=== PATIENT | male | born 1950 | race Caucasian/White ===

== ENCOUNTER 2018-05-29 12:39 | Emergency (ER) | END 2018-05-29 14:23 | disposition home or self-care (01) ==

== ENCOUNTER 2018-09-07 10:36 | Emergency (ER) | payer MEDICARE, OTHER ==
[~2018-09-07] VITALS: Wt 84.0 kg
[~2018-09-07 10:36] MED LIST: IBUP800T48 PO
[2018-09-07 10:44] VITALS: BP 145/81; PULSE 81; RESP 20
[2018-09-07] MEDS ORDERED: KETOROLAC 30 MG INJ IM STA (11:14)
--- NOTE | 2018-09-07 20:07 | ERD ---
ER Documentation Chief Complaint Chief Complaint RIGHT GROIN INTERMITTENT SWELLING FOR THE PAST MONTH. NO DYSURIA HPI This 67-year-old male patient presents to the emergency room with complaint of pain in right lower quadrant starting 2 months ago. Patient has seen his primary care doctor who performed ultrasound of abdomen and found fatty liver and no appendicitis. Patient states 2 days ago he started to feel a bulge in his right groin area and is concerned he could have a hernia. Patient states he is having normal bowel movements without straining, no melena, no hematochezia, pain is sharp and stabbing and intermittent. No penile discharge, no hydrocele. States he had been able to push the bulge back into his abdomen until 2 days ago where now he cannot do that and that is causing him concern. Patient ambulates with steady gait. Patient does have extensive medical history including DE, hypertension, depression, treated hep C. Patient states he does not drink alcohol, smoke cigarettes, or do drugs. ROS All systems reviewed and are negative except as per history of present illness. Medications Home Meds Active Scripts Ibuprofen* (Motrin*) 800 Mg Tab, 800 MG PO Q6, #30 TAB Prov:MANUEL RASCON PA-C 05/29/18 Allergies Allergies: Coded Allergies: No Known Allergy (Verified , 09/07/18) PMhx/Soc Medical and Surgical Hx: pt denies Medical Hx Hx Cardiac Disorders: Yes (hypertension) Hx Alcohol Use: Yes (socially) Hx Substance Use: No Hx Tobacco Use: No (have not smoked for 12 years) Smoking Status: Former smoker FmHx Family History: No diabetes, No coronary disease, No other Physical Exam Vitals Vital Signs Date Temp Pulse Resp B/P (MAP) Pulse Ox O2 O2 Flow FiO2 Time Delivery Rate 09/07/18 98.2 81 20 145/81 98 10:44 (102) Physical Exam Const: No acute distress Head: Atraumatic Eyes: Normal Conjunctiva ENT: Normal External Ears, Nose and Mouth. Neck: Full range of motion. No meningismus. Resp: Clear to auscultation bilaterally Cardio: Regular rate and rhythm, no murmurs, bilateral femoral pulses +2 strong and regular Abd: Soft, non tender, non distended. Normal bowel sounds Groin: bulge observable to right suprapubic region, no redness, normothermic, no bruising or discolored skin. Testicles palpated bilaterally in scrotal sac, no swelling, hydrocele, enlarged vessels. Hernia exam: left neg, right- unable to advance into inguinal canal due to presence of large hernia. Skin: No petechiae or rashes Back: No midline or flank tenderness Ext: No cyanosis, or edema Neur: Awake and alert Psych: Normal Mood and Affect Results 24 hrs Current Medications Medications Dose Sig/Jaylon Start Time Status Last (Trade) Ordered Route PRN Stop Time Admin Dose Reason Admin Ketorolac 30 mg ONCE STAT 09/07/18 DC 09/07/18 Tromethamine IM 11:14 11:53 (Toradol) 09/07/18 11:47 Procedures/MDM This is a 67-year-old male patient who presents to the emergency room with pain in groin. ED COURSE: The patient was stable throughout ED course. DIAGNOSTIC IMAGING: Deferred at this time as hernia was reducible PROCEDURES: Hernia able to be reduced by Dr. Quiroz while patient was in supine position, hernia reduced easily without pain. Patient tolerated well. Hernia belt placed after procedure. MEDICATIONS GIVEN: Toradol Patient tolerated medication well with no adverse reactions. Patient reported improvement in pain. Suspicion for lymphadenopathy, hydrocele, cryptochidism, abscess, tumor, cyst, incarcerated hernia, malignant process. Patient was provided with instructions on care of hernia, signs and symptoms of worsening of condition and when to seek emergent medical treatment. Patient provided with referrals for general surgery. Departure Diagnosis: Primary Impression: Inguinal hernia Condition: Stable Patient Instructions: Hernia (Inguinal, Ventral, Umbilical) Referrals: MARCIN ORTIZ MD, ANDREW I MD Additional Instructions: Thank you very much for allowing us to participate in your care. Your health and safety is our top priority at [facility]. Call your primary care doctor TOMORROW for an appointment during the next 2-4 days and bring all the information and medications prescribed. Have prescriptions filled and follow precisely the directions on the label. If the symptoms get worse and your provider is unavailable, return to the Emergency Department immediately. Use ibuprofen or Tylenol for pain. Use hernia belt for comfort. Into the emergency room immediately if you develop fever, severe constipation, red hot swollen area over hernia, severe pain at hernia. Follow-up with your primary doctor for referral for surgeon. Surgical referral is also provided. JESUS LAGOS NP Sep 07, 2018 20:06
== END 2018-09-07 12:30 | disposition home or self-care (01) ==
LOC: FTE 10:36
DX: K40.91 Unilateral inguinal hernia, without obstruction or gangrene, recurrent (principal); I10 Essential (primary) hypertension; I25.2 Old myocardial infarction; Z87.891 Personal history of nicotine dependence
CPT/HCPCS: 96372; 99284; J1885

== ENCOUNTER → 2018-10-01 | Day surgery (SDC) | payer MEDICARE, OTHER ==
[2018-09-29 17:05] VITALS: Ht 180.3 cm; Wt 88.0 kg
[~2018-10-01] VITALS: Ht 180.3 cm; Wt 88.0 kg
[~2018-10-01] MED LIST changes: +CEFAZOLIN 2 GM/50 ML (PMX) 50 ML IVPB SCH; +SOD CHLORIDE 0.9% 1,000 ML IV SCH
== END | disposition home or self-care (01) ==
LOC: SDS 14:12
PROVIDERS: ATTEND Surgery
DX: K40.90 Unilateral inguinal hernia, without obstruction or gangrene, not specified as recurrent (principal); Z53.8 Procedure and treatment not carried out for other reasons

== ENCOUNTER 2018-10-08 08:43 | Emergency (ER) | payer MEDICARE, OTHER ==
[~2018-10-08] VITALS: Wt 80.0 kg
[~2018-10-08 08:43] MED LIST changes: -CEFAZOLIN 2 GM/50 ML (PMX) 50 ML IVPB SCH; -SOD CHLORIDE 0.9% 1,000 ML IV SCH
[2018-10-08 08:48] VITALS: BP 116/68; PULSE 69; RESP 18
--- NOTE | 2018-10-08 10:14 | ERD ---
ER Documentation Chief Complaint Chief Complaint AP, HERNIA REPAIR CANCELLED LAST SATURDAY HPI 67-year-old male presents the emergency room complaining of pain in his right inguinal hernia. Patient has had a right inguinal hernia for some time now. He was unable to get his surgery performed last week as it was canceled. He presents the emergency department complaining of ongoing pain in the right inguinal area. He reports no nausea or vomiting. He reports pain localized in the area. He reports no fevers or chills. ROS All systems reviewed and are negative except as per history of present illness. Medications Home Meds Active Scripts Ibuprofen* (Motrin*) 800 Mg Tab, 800 MG PO Q6, #30 TAB Prov:MANUEL RASCON PA-C 05/29/18 Allergies Allergies: Coded Allergies: No Known Allergy (Verified , 09/07/18) PMhx/Soc History of Surgery: Yes (PACEMAKER PLACEMENT ) Anesthesia Reaction: No Hx Neurological Disorder: No Hx Respiratory Disorders: No Hx Cardiac Disorders: Yes (HTH, HIGH CHOLESTEROL, ) Hx Psychiatric Problems: Yes (DEPRESSION, ANXIETY ) Hx Miscellaneous Medical Probl: Yes (HEP B GOT TREATMENT ALREADY ) Hx Alcohol Use: No Hx Substance Use: No Hx Tobacco Use: No Smoking Status: Former smoker Physical Exam Vitals Vital Signs Date Temp Pulse Resp B/P (MAP) Pulse Ox O2 O2 Flow FiO2 Time Delivery Rate 10/08/18 98.1 69 18 116/68 99 08:48 (84) Physical Exam General: Well-developed well-nourished in no distress Abdomen: Soft, nontender with normal bowel sounds. : Patient has a reducible inguinal hernia without evidence of entrapment or incarceration Procedures/MDM Patient was taken to a room, seen and examined Medical decision makin-year-old presents the emergency room with a reducible inguinal hernia. Patient is referred back to his primary care doctor and surgeon for scheduling of operative repair. At this time he has no evidence of entrapment or obstruction. Departure Diagnosis: Primary Impression: Inguinal hernia Condition: Stable Patient Instructions: Hernia (Inguinal, Ventral, Umbilical) Additional Instructions: Speak to your surgeon and arrange your surgery. JODIE LÓPEZ Oct 08, 2018 10:14
== END 2018-10-08 10:24 | disposition home or self-care (01) ==
LOC: E/R 08:43
DX: K40.90 Unilateral inguinal hernia, without obstruction or gangrene, not specified as recurrent (principal); I10 Essential (primary) hypertension; Z87.891 Personal history of nicotine dependence; Z95.0 Presence of cardiac pacemaker
CPT/HCPCS: 99283

== ENCOUNTER 2018-10-22 10:23 | Day surgery (SDC) | payer MEDICARE, OTHER ==
--- NOTE | 2018-10-21 14:54 | PREOPHP ---
DATE OF SURGERY: 10/22/2018 Scheduled for outpatient surgery 10/22/2018. HISTORY OF PRESENT ILLNESS: The patient is a 67-year-old male with a symptomatic right inguinal hernia, scheduled to undergo open repair of right inguinal hernia with mesh. The patient has had 2 months of right groin pain with neuritic symptoms in the right groin. He has required Tylenol with codeine No. 3 to relieve his pain while he is waiting to have surgical repair. He does heavy lifting. He denies any nausea or vomiting. PAST MEDICAL HISTORY: 1. Amlodipine 10 mg for hypertension. 2. Wellbutrin 150 mg daily. 3. Aspirin 81 mg daily. 4. Flomax. 5. Lipitor. ALLERGIES: None. PAST SURGICAL HISTORY: Pacemaker 2009. REVIEW OF SYSTEMS: myocardial infarction x2. History of hepatitis C. 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 PHYSICAL EXAMINATION: GENERAL: The patient is 5 feet 11 inches, 195 pounds. VITAL SIGNS: within normal limits. HEENT: Within normal limits. LUNGS: Clear. HEART: Regular rhythm. ABDOMEN: Soft. There is a large reducible right inguinal hernia with some tenderness to palpation. The left inguinal canal is intact. Testes and scrotum are negative. Rectal negative per primary care physician. EXTREMITIES: Without edema. NEUROLOGIC: Physiologic. ASSESSMENT: Right inguinal hernia. PLAN: I have had a full discussion with the patient regarding the nature of his condition and the nature of the surgery, indications, alternatives, options and risks including bleeding, infection, recurrence despite use of mesh, neuritis or neuralgia, testicular or scrotal swelling or other abnormality, etc. All questions have been answered. He understands and agrees to proceed with open repair of right inguinal hernia with mesh under general anesthesia. He has received full medical clearance. Dictated By: TAE GEORGE/ZULY Conf#: [id number] DID#: [id number] CONCEPCIÓN
[~2018-10-22] VITALS: Ht 180.3 cm; Wt 87.6 kg
[2018-10-22] VITALS (13 sets, daily range): BP systolic 114–140; BP diastolic 61–77; PULSE 55–61; RESP 10–24; Ht 180.3 cm; Wt 87.6 kg
[~2018-10-22 10:23] MED LIST changes: +CEFAZOLIN 2 GM/50 ML (PMX) 50 ML IVPB SCH; +SEVOFLURANE 15 MIN ONE; +SOD CHLORIDE 0.9% 1,000 ML IV ONE
--- NOTE | 2018-10-22 10:54 | HPN ---
Date/Time of Note Date/Time of Note DATE: 10/22/18 TIME: 10:54 Interval H&P Admission Note Pt. seen H&P reviewed: No system changes TAE OSUNA October 22, 2018 10:54
[2018-10-22] MEDS ORDERED: AMLO-147 PO (10:59)
[2018-10-22] MEDS ORDERED: BUPR-75 PO (11:00)
[2018-10-22] MEDS ORDERED: TAMS-14 PO (11:00)
[2018-10-22] MEDS ORDERED: ATOR10TA65 PO (11:01)
[2018-10-22] MEDS ORDERED: ASPI81TA52 PO (11:01)
[2018-10-22] MEDS ORDERED: LIDOCAINE 1% (MPF) 30 ML INJ ONE (12:09)
[2018-10-22] MEDS ORDERED: POLYMYXIN/BACITRACIN 1L IRRIG ONE (12:09)
[2018-10-22] MEDS ORDERED: BUPIVACAINE 0.25% (MPF) 30 ML INJ ONE (12:09)
[2018-10-22] MEDS ORDERED: PROPOFOL 20 ML ONE (12:27)
[2018-10-22] MEDS ORDERED: ROCURONIUM 50 MG INJ ONE ×2 (12:27→13:33)
[2018-10-22] MEDS ORDERED: SUCCINYLCHOLINE CHLORIDE 100 MG/5 ML SYG IV ONE (12:27)
[2018-10-22] MEDS ORDERED: MIDAZOLAM 1 MG/ML 2 ML INJ ONE (12:27)
[2018-10-22] MEDS ORDERED: FENTAnyl 50 MCG/ML VIAL ONE ×2 (12:27→13:33)
[2018-10-22] MEDS ORDERED: LIDOCAINE 100 MG SYRINGE ONE (12:27)
[2018-10-22] MEDS ORDERED: CEFAZOLIN 1 GM INJ ONE (12:49)
[2018-10-22] MEDS ORDERED: SUGAMMADEX SODIUM 200 MG/2 ML VIAL IV ONE (12:50)
[2018-10-22] MEDS ORDERED: ONDANSETRON 4 MG INJ ONE (12:50)
[2018-10-22] MEDS ORDERED: DEXAMETHASONE 4 MG/ML 5 ML INJ ONE (12:50)
[2018-10-22] MEDS ORDERED: BUPIVACAINE 0.5% (SDV) 30 ML INJ ONE (13:00)
--- NOTE | 2018-10-22 13:17 | PREAC ---
Date/Time of Note Date/Time of Note DATE: 10/22/18 TIME: 13:14 Anesthesia Eval and Record Evaluation Time Pre-Procedure Interview DATE: 10/22/18 TIME: 12:20 Age 67 Sex male NPO: 8 hrs Preoperative diagnosis Right Inguinal Hernia Planned procedure Right Inguinal Hernia Repair with Mesh Past Medical History Past Medical History: Includes (Denies cp on exertion, prior to hernia, was able to ambulate withouth restrictions. ) Cardio: HTN, CAD, Arrythmia, PPM/AICD Hepatic: Hepatitis Infection(s): Hep C Surgery & Anesthesia Issues No known issue Meds Anticoagulation: No Beta Oniel within 24 hr: No Reason Beta Oniel not given: Pt. not on B-Oniel Reported Medications Atorvastatin Calcium (Atorvastatin Calcium) 10 Mg Tablet, 10 MG PO QHS, #30 TAB 10/22/18 Aspirin (Low Dose Aspirin) 81 Mg Tablet.dr, 81 MG PO DAILY, #30 TAB 10/22/18 Tamsulosin Hcl* (Flomax*) 0.4 Mg Cap.er.24h, 0.4 MG PO HS, CAP 10/22/18 Bupropion Hcl* (Wellbutrin XL*) 150 Mg Tab.sr.24h, 150 MG PO DAILY, TAB.SA 10/22/18 Amlodipine Besylate* (Amlodipine Besylate*) 10 Mg Tablet, 10 MG PO DAILY, #30 TAB 10/22/18 Discontinued Scripts Ibuprofen* (Motrin*) 800 Mg Tab, 800 MG PO Q6, #30 TAB Prov:MANUEL RASCON PA-C 05/29/18 Current Medications Cefazolin Sodium/ Dextrose 50 ml @ 100 mls/hr PRE-OP IVPB ; Start 10/22/18 at 06:00; Stop 10/22/18 at 15:00 Sodium Chloride 1,000 ml @ 75 mls/hr [id number] ONCE IV Last administered on 10/22/18at 11:20; Admin Dose 75 MLS/HR; Start 10/22/18 at 06:00; Stop 10/22/18 at 19:19 Meds reviewed: Yes Allergies Coded Allergies: No Known Allergy (Verified , 10/22/18) Allergies Reviewed: Yes Labs/Studies Labs Reviewed: Reviewed by anesthesiologist test: N/A Pre-procedure Exam Last vitals Vital Signs Date Temp Pulse Resp B/P (MAP) Pulse Ox O2 O2 Flow FiO2 Time Delivery Rate 10/22/18 98.1 55 16 140/76 98 Room Air 11:30 (97) Airway: Adequate mouth opening Mallampati: Mallampati II Teeth: Abnormal (Multiple upper and lower missing and damaged teeth) Lung: Normal Heart: Normal ASA Physical Status ASA physical status: 3 Emergency: None Planned Anesthetic General/MAC: ETT Pre-operative Attestations Prior to commencing anesthesia and surgery, the patient was re-evaluated, there was verification of: *The patient's identity *The results of appropriate recent lab work and preoperative vital signs *The above evaluation not changing prior to induction *Anesthetic plan, risk benefits, alternative and complications discussed with patient/family; questions answered; patient/family understands, accepts and wishes to proceed. ASHLEY APONTE MD October 22, 2018 13:17
[2018-10-22] MEDS ORDERED: ONDANSETRON 4 MG INJ IV PRN (13:30)
[2018-10-22] MEDS ORDERED: DIPHENHYDRAMINE 50 MG INJ IV PRN (13:30)
[2018-10-22] MEDS ORDERED: HYDROmorphONE 1 MG/5 ML IV SYRINGE IV PRN ×2 (13:30)
[2018-10-22] MEDS ORDERED: MEPERIDINE 25 MG INJ IV PRN (13:30)
[2018-10-22] MEDS ORDERED: KETOROLAC 30 MG INJ ONE (13:54)
--- NOTE | 2018-10-22 14:12 | SIPON ---
Date/Time of Note Date/Time of Note DATE: 10/22/18 TIME: 14:11 Operative Report Preoperative Diagnosis right inguinal hernia Postoperative Diagnosis right indirect with secondary direct inguinal hernia Operation/Procedure Performed open repair of right inguinal hernia with prolene mesh Surgeon see signature line team assistant none Anesthesia: general Estimated blood loss: minimal Transfusion Required none Specimen none Grafts/Implants prolene mesh Complications none TAE OSUNA October 22, 2018 14:12
--- NOTE | 2018-10-22 14:39 | PAC ---
Date/Time of Note Date/Time of Note DATE: 10/22/18 TIME: 14:38 Post-Anesthesia Notes Post-Anesthesia Note Last documented vital signs Vital Signs Date Temp Pulse Resp B/P (MAP) Pulse Ox O2 O2 Flow FiO2 Time Delivery Rate 10/22/18 99.1 14:23 10/22/18 55 16 140/76 98 Room Air 11:30 (97) Activity: WNL Respiratory function: WNL Cardiovascular function: WNL Mental status: Baseline Pain reasonably controlled: Yes Hydration appropriate: Yes Nausea/Vomiting absent: Yes ASHLEY APONTE MD October 22, 2018 14:38
[2018-10-22] MEDS: HYDROmorphONE 1 MG/5 ML IV SYRINGE IV PRN ×2 (14:47→15:10)
[2018-10-22] MEDS ORDERED: HYDROCODONE/APAP (5/325) TAB PO ONE (16:30)
--- NOTE | 2018-10-22 16:41 | OPR ---
DATE OF OPERATION: 10/22/2018 SURGEON: Tae Camarena MD MAT PACKER: None. ANESTHESIOLOGIST: Dr. Wilhelm. ANESTHESIA: General endotracheal. PREOPERATIVE DIAGNOSIS: Right inguinal hernia. POSTOPERATIVE DIAGNOSIS: Right indirect with secondary direct inguinal hernia. OPERATION PERFORMED: Open repair of right inguinal hernia with Prolene mesh. DESCRIPTION OF PROCEDURE: The patient was taken to the operating room and under general anesthesia, with sequential compression device stockings in place, he was prepped and draped in the usual fashion. A transverse curvilinear right groin incision was made, achieving hemostasis with cautery and incising the external oblique aponeurosis through the external ring. The spermatic cord was quite bulky. The ilioinguinal nerve was preserved. The indirect hernia sac was identified anteromedial in the cord and was circumferentially dissected free of attachments to the cord well into the internal ring. The sac was then reduced. There was also failure of the floor of the inguinal canal and adhesions of the direct inguinal hernia sac were taken down with cautery for hemostasis. The repair was accomplished by taking a piece of Prolene mesh, cut and tapered appropriately, soaked in antibiotic solution, measuring approximately 5 x 9 cm. First the inferior edge of the mesh was sutured to the shelving edge of inguinal ligament starting at pubic tubercle and extending lateral to the internal ring with continuous 2-0 Prolene. Then the lateral aspect of the mesh was split longitudinally so the tails could encircle the cord. Following this, the medial-superior edge of the mesh was sutured to the transversus tendon again starting at the pubic tubercle and extending lateral to the internal ring with continuous 2-0 Prolene. One suture was taken lateral to the internal ring to tack the superior tail over the inferior tail to the inguinal ligament. The newly created internal ring of mesh did not constrict the cord. The repair appeared very satisfactory without tension. The field was irrigated and hemostasis was secured with cautery. The external oblique aponeurosis was closed over the spermatic cord with continuous 2-0 Vicryl. Mary's fascia was closed with interrupted 3-0 Vicryl, subcutaneous tissues closed with 3-0 Vicryl and the skin closed with continuous 4-0 Monocryl subcuticular suture. Mastisol and 1/2-inch Steri-Strips were applied, followed by dry sterile dressing. The incision had been infiltrated with a mixture of 0.5% Marcaine plain and 1% lidocaine plain. Final sponge and needle counts were correct. At the end of the procedure the right testis was readily retracted well down into the scrotum. The patient tolerated the procedure well and left the operating room in good condition. Dictated By: TAE GEORGE/ZULY Conf#: [id number] DID#: [id number] CONCEPCIÓN
[2018-10-22] MEDS ORDERED: CARISOPRODOL 350 MG TAB PO ONE (17:30)
== END 2018-10-22 17:25 | disposition home or self-care (01) ==
LOC: SDS 10:23
PROVIDERS: ATTEND Surgery
DX: K40.90 Unilateral inguinal hernia, without obstruction or gangrene, not specified as recurrent (principal); I10 Essential (primary) hypertension; I25.2 Old myocardial infarction; B19.20 Unspecified viral hepatitis C without hepatic coma; Z95.0 Presence of cardiac pacemaker; Z79.82 Long term (current) use of aspirin
CPT/HCPCS: 49505; 71045; C1781; J0690; J1100; J1170; J1885; J2001; J2250; J2405; J3010

== ENCOUNTER 2019-02-05 06:11 | Emergency (ER) | payer MEDICARE, OTHER ==
[~2019-02-05] VITALS: Ht 180.3 cm; Wt 90.4 kg
[~2019-02-05 06:11] MED LIST changes: +AMLO-147 PO; +ASPI81TA52 PO; +ATOR10TA65 PO; +BUPR-75 PO; -CEFAZOLIN 2 GM/50 ML (PMX) 50 ML IVPB SCH; -IBUP800T48 PO; +MED4DP PO; +ONDA4TAB14 PO; -SEVOFLURANE 15 MIN ONE; -SOD CHLORIDE 0.9% 1,000 ML IV ONE; +TAMS-14 PO
[2019-02-05 06:17] VITALS: BP 131/74; PULSE 80; RESP 18; Ht 180.3 cm; Wt 90.4 kg
[2019-02-05] MEDS ORDERED: ACETAMINOPHEN 500 MG TAB PO STA (06:54)
[2019-02-05] MEDS ORDERED: ONDANSETRON 4 MG INJ IV STA (06:54)
[2019-02-05] MEDS ORDERED: SOD CHLORIDE 0.9% 1,000 ML IV STA (06:54)
== END 2019-02-05 08:06 | disposition home or self-care (01) ==
LOC: FTE 06:11
DX: R53.83 Other fatigue (principal); F17.210 Nicotine dependence, cigarettes, uncomplicated; I10 Essential (primary) hypertension; Z79.82 Long term (current) use of aspirin; Z95.0 Presence of cardiac pacemaker
CPT/HCPCS: 36415; 96374; 99284; J2405; J7030